=== PATIENT | male | born 1955 ===

== ENCOUNTER 2019-12-12 12:31 | Outpatient (CLI) | payer MEDICAID | END 2019-12-12 12:32 | disposition short-term general hospital (02) | LOC: EMS 12:31 | PROVIDERS: ATTEND Surgery | DX: R55 Syncope and collapse (principal); R09.89 Other specified symptoms and signs involving the circulatory and respiratory systems | CPT/HCPCS: A0425; A0427 ==

== ENCOUNTER 2019-12-29 21:40 | Outpatient (CLI) | payer MEDICAID | END 2019-12-29 21:41 | disposition short-term general hospital (02) | LOC: EMS 21:40 | PROVIDERS: ATTEND Surgery | DX: R53.1 Weakness (principal); R42 Dizziness and giddiness | CPT/HCPCS: A0425; A0429; A0999 ==